=== PATIENT | male | born 1940 | race Caucasian/White ===

== ENCOUNTER 2018-04-09 07:12 | Day surgery (SDC) | payer MEDICARE ==
[2018-04-09] MEDS ORDERED: NO HOME MEDICATIONS (08:10)
[2018-04-09] MEDS ORDERED: NO Heparin, Lovenox, Coumadin at least 12 hours prior to procedure. PRN (08:45)
[2018-04-09] MEDS ORDERED: Hold AM Insulin & AM Hypoglycemic medications in diabetic patients PRN (08:45)
[2018-04-09] MEDS ORDERED: MUPIROCIN 2% OINT 1 APPLIC/GM SYR NASAL SCH (08:45)
[2018-04-09] MEDS ORDERED: POVIDONE IODINE 5% (ANTISEPSIS KIT) 4 APPLICATIONS EACH NARE SCH (08:45)
[2018-04-09] MEDS ORDERED: ceFAZolin 2 GM PREMIX 50 ML IV SCH (08:45)
[2018-04-09] MEDS ORDERED: NS 1000 ML IV SCH (09:00)
[2018-04-09] MEDS ORDERED: ceFAZolin INJ 1,000 MG VIAL ONE (09:25)
[2018-04-09] MEDS ORDERED: MIDAZOLAM HCL 5 MG/ML VIAL (1 ML) ONE (10:37)
--- NOTE | 2018-04-09 10:58 | MA ---
cc: Brandon Lay MD DATE: 04/09/2018 INDICATIONS: Atrial fibrillation detection. PROCEDURE PERFORMED: 1. 15 minutes of moderate IV sedation. 2. Loop recorder insertion. DESCRIPTION OF PROCEDURE: The patient was brought to the DOC Unit in the postabsorptive state. After informed consent was obtained, 2 mg of Versed and 25 mcg of the fentanyl was given for moderate IV sedation. Next, a [employer] LINQ loop recorder was inserted subcutaneously in the left chest. The patient tolerated the procedure well without any apparent complications. Tachybrady pause and atrial fibrillation detection was enabled. The initial R-wave was 0.84 millivolts. The serial number was [id number]. Brandon Lay MD [email or web address] , 10:44 AM , 10:56 AM
[2018-04-09] MEDS: CHLORHEXIDINE GLUCONATE 2 % 1 PACK (2 CLOTHS) TOPICAL SCH ×2 (11:41→12:04)
== END 2018-04-09 12:15 | disposition home or self-care (01) ==
LOC: HDOC 07:12 → HDIC 07:13 → HDOC 12:15
PROVIDERS: ATTEND Nuclear Medicine Nuclear Cardiology
DX: I48.91 Unspecified atrial fibrillation (principal); I49.1 Atrial premature depolarization; I11.9 Hypertensive heart disease without heart failure; E78.5 Hyperlipidemia, unspecified
CPT/HCPCS: 33282; C1764; J0690; J2250; J3010; J7030